=== PATIENT | male | born 1970 | race Caucasian/White ===

== ENCOUNTER 2017-09-18 20:07 | Observation (INO) | payer OTHER ==
[2017-09-18] MEDS ORDERED: HYDROmorphONE/DILAUDID 1 MG/ML INJ IVP ONE (20:10)
--- NOTE | 2017-09-18 20:11 | EDPHY ---
H & P Time Seen by Provider: 09/18/17 20:08 HPI/ROS: Chief Complaint: Left leg injury HPI: 47-year-old male was skiing [facility] this afternoon when he had a fall and sustained injury to his left lower leg. He was seen at the medical clinic there and diagnosed with a closed tibia and fibular fracture. He was in contact with Dr. Ingram, orthopedics. Dr. Jama requested the patient be transferred here via ambulance for planned surgical repair in the morning. Patient was helmeted. Did not hit his head. He had no loss of conscious. He has no other injuries or complaints at this time. He was splinted at [place] and is comfortable. ROS: 10 point Review of Systems is negative except as noted in the HPI. PMH: None Social History: No smoking, no alcohol, no recreational drug use Family History: non-contributory Physical Exam: Gen: Awake, Alert, No Distress HEENT: Nose: no rhinorrhea Eyes: PERRLA, EOMI Mouth: Moist mucosa Neck: Supple, no JVD Chest: nontender, lungs clear to auscultation Heart: S1, S2 normal, no murmur Abd: Soft, non-tender, no guarding Back: no CVA tenderness, no midline tenderness Ext: Left leg is in a posterior and sugar-tong splint. Capillary refill is less than 2 sec. He has normal sensation. Skin: no rash Neuro: CN II-XII intact, Sensation grossly intact, Strength 5/5 in bilateral upper and lower extremities Constitutional: Initial Vital Signs Temperature (C) 36.9 C 09/18/17 20:09 Heart Rate 89 09/18/17 20:09 Respiratory Rate 18 09/18/17 20:09 Blood Pressure 130/96 H 09/18/17 20:09 O2 Sat (%) 98 09/18/17 20:09 O2 Delivery Mode Room Air O2 (L/minute) 3 Allergies/Adverse Reactions: No Known Allergies Allergy (Unverified 09/18/17 20:09) Home Medications: Medication Instructions Recorded Finasteride 09/18/17 Medical Decision Making ED Course/Re-evaluation: I have discussed with LUNA Harden, orthopedics. She is requesting that the patient be admitted to the hospitalist. I have discussed with Dr. Leigh. She will admit to her service for further care. Patient be NPO after midnight. - Data Points Medications Given: Discontinued Medications Hydromorphone HCl (Dilaudid) 0.5 mg IVP EDNOW ONE Stop: 09/18/17 20:11 Last Admin: 09/18/17 20:15 Dose: 0.5 mg Departure - Departure [facility] Acute Clinical Impression: Tibia/fibula fracture Condition: Fair Referrals: Patient,NotPresent [Primary Care Provider] - As per Instructions
[2017-09-18] MEDS ORDERED: ACETAMINOPHEN 325 MG TAB PO PRN (20:37)
[2017-09-18] MEDS ORDERED: PROMETHAZINE HCL 25 MG/ML INJ IVP PRN (20:37)
[2017-09-18] MEDS ORDERED: HYDROCODONE/APAP 5/325 TAB PO PRN (20:37)
[2017-09-18] MEDS ORDERED: diphenhydrAMINE 25 MG CAP PO PRN (20:37)
[2017-09-18] MEDS ORDERED: LORazepam 0.5 MG TAB PO PRN (20:37)
[2017-09-18] MEDS ORDERED: ONDANSETRON 4 MG/2 ML VIAL IVP PRN (20:37)
[2017-09-18] MEDS: HYDROmorphONE/DILAUDID 1 MG/ML INJ IVP PRN (21:38)
[2017-09-18] MEDS ORDERED: ZOLPIDEM TARTRATE 5 MG TAB PO PRN (22:02)
[2017-09-18] MEDS: OXYCODONE/APAP 5/325 TAB PO PRN (22:25)
--- NOTE | 2017-09-18 22:28 | PDGENHP ---
History and Physical - Chief Complaint Left lower leg pain, ski accident - History of Present Illness Source-patient provides history and is reliable. EMR reviewed and case discussed with ED provider. HPI - very pleasant 47-year-old gentleman with no significant past medical history except for recent on the shingles in his right axilla who presents emergency department today from [place] following a fall while skiing. Patient with left lower extremity pain. He was evaluated and diagnosed with a closed tib-fib fracture. Splinted prior to transfer to [facility] for surgical intervention. Patient denies any head injury. Was ring home med. He was feeling well until his fall. No other acute illnesses. Patient denies any numbness or tingling in his left lower extremity. History Information - Allergies/Home Medication List Allergies/Adverse Reactions: No Known Allergies Allergy (Verified 09/18/17 22:14) Home Medications: Finasteride [Propecia] 1 mg PO HS 09/18/17 [Last Taken 09/17/17] Herbals/Supplements -Info Only 1 unit PO DAILY 09/18/17 [Last Taken Unknown] Valacyclovir HCl [Valtrex] 1 gm PO TID 09/18/17 [Last Taken 09/18/17 12:00] I have personally reviewed and updated: family history, medical history, social history, surgical history - Past Medical History Additional medical history: Shingles right axilla - Surgical History Additional surgical history: ORIF of the right clavicle. Peroneal bursa excision. - Family History Positive for: non-pertinent - Social History Smoking Status: Never smoked Alcohol Use: None Drug Use: None Additional social history: lives with and children. Cor status- full Review of Systems Review of Systems: ROS: 10pt was reviewed & negative except for what was stated in HPI & below Neurological: Reports: other (Right axillary herpetic neuralgia) Physical Exam Physical Exam: Temp Pulse Resp BP Pulse Ox 36.8 C 71 16 137/77 H 97 09/18/17 21:19 09/18/17 21:19 09/18/17 21:19 09/18/17 21:19 09/18/17 21:19 Constitutional: no apparent distress, other (Pleasant adult male lying comfortably with left leg splinted and elevated) Eyes: EOMI (Grossly intact), No scleral injection Ears, Nose, Mouth, Throat: moist mucous membranes, No poor dentition Cardiovascular: regular rate and rhythym, no murmur, rub, or gallop, No edema Peripheral Pulses: 2+: dorsalis-pedis (R) Respiratory: no respiratory distress, no rales or rhonchi, clear to auscultation Gastrointestinal: normoactive bowel sounds, soft, non-tender abdomen, no palpable masses Genitourinary: no bladder tenderness, No sandra in urethra Skin: warm, normal color, rash (Right axilla with minimal area of erythema. No scabbed lesions or grouped vesicles.) Musculoskeletal: other (Left leg immobilized otherwise moves all extremities while lying in gurney.) Neurologic: AAOx3, sensation intact bilaterally (Sensation of bilateral toes. Limited exam on the left secondary to splint), other (Grossly normal.), No numbness Psychiatric: interacting appropriately, not anxious, not encephalopathic, thought process linear Assessment & Plan Assessment: Tibia/fibula fracture (Acute) Plan: Assessment and plan: Pleasant 39-year-old gentleman status post mechanical fall while skiing now with left lower leg pain. # left tib fib fracture-orthopedics previously consulted prior to patient's arrival. Plan for patient to go to the OR in a.m. he will be NPO after midnight. # acute postoperative pain-patient reports less itching with use of Dilaudid and Percocet over morphine and [place]. This has been changed in EMR. #shingles - patient without any open lesions. His rash is nearly resolved. Will plan to continue his antivirals once medication list has been reconciled in the morning. FEN - NPO after midnight. Labs in a.m. replace electrolytes if needed. PPX - holding anticoagulation SCDs in setting of perioperative status with lower extremity fracture. COR - full Dispo - patient has been admitted to observation status pending further recommendations Orthopedic surgery. No contraindications to proceed with surgery in the a.m.. Patient overall is low cardiac risk.
[2017-09-19] MEDS: HYDROmorphONE/DILAUDID 1 MG/ML INJ IVP PRN ×8 (00:47→13:04)
[2017-09-19 05:01] LABS: INR 1.06 (0.83-1.16)
--- NOTE | 2017-09-19 09:13 | PDANEPAE ---
ANE History of Present Illness fracture of L tibia and fibula ANE Past Medical History - Cardiovascular History Hx Hypertension: No Hx Arrhythmias: Yes Hx Chest Pain: No Hx Coronary Artery / Peripheral Vascular Disease: No Hx CHF / Valvular Disease: No Hx Palpitations: No Cardiovascular History Comment: Occassional PVC's - Pulmonary History Hx COPD: No Hx Asthma/Reactive Airway Disease: No Hx Recent Upper Respiratory Infection: No Hx Oxygen in Use at Home: No Hx Sleep Apnea: No Sleep Apnea Screening Result - Last Documented: Negative - Neurologic History Hx Cerebrovascular Accident: No Hx Seizures: No Hx Dementia: No - Endocrine History Hx Diabetes: No Hypothyroid: No Hyperthyroid: No Obesity: no - Renal History Hx Renal Disorders: No - Liver History Hx Hepatic Disorders: No - Neurological & Psychiatric Hx Hx Neurological and Psychiatric Disorders: No - Cancer History Hx Cancer: No - GI History GERD: no - Chronic Pain History Chronic Pain: No - Surgical History Prior Surgeries: s/p clavicle ORIF ANE Review of Systems Review of Systems: - Exercise capacity METS (RN): 5 METS ANE Patient History - Allergies Allergies/Adverse Reactions: No Known Allergies Allergy (Verified 09/18/17 22:14) - Home Medications Home Medications: Finasteride [Propecia] 1 mg PO HS 09/18/17 [Last Taken 09/17/17] Herbals/Supplements -Info Only 1 unit PO DAILY 09/18/17 [Last Taken Unknown] Valacyclovir HCl [Valtrex] 1 gm PO TID 09/18/17 [Last Taken 09/18/17 12:00] - NPO status NPO Since - Liquids (Date): 09/19/17 NPO Since - Liquids (Time): 01:00 NPO Since - Solids (Date): 09/19/17 NPO Since - Solids (Time): 01:00 - Anes Hx Anes Hx: no prior problems - Smoking Hx Smoking Status: Never smoked - Alcohol Use Alcohol Use: Occasionally - Family Anes Hx Family Anes Hx: neg - N/A ANE Labs/Vital Signs - Labs Result Diagrams: 09/19/17 04:31 - Vital Signs Blood Pressure: 122/77 Heart Rate: 84 Respiratory Rate: 12 O2 Sat (%): 96 Height: 185.42 cm Weight: 80 kg ANE Physical Exam - Airway Neck exam: FROM Mallampati Score: Class 1 Mouth exam: normal dental/mouth exam (small chip on upper front tooth) - Pulmonary Pulmonary: clear to auscultation - Cardiovascular Cardiovascular: regular rate and rhythym - ASA Status ASA Status: II ANE Anesthesia Plan Anesthesia Plan: general endotracheal anesthesia (muscle relaxation requested.) Regional Anesthesia: adductor canal FNB
[2017-09-19] MEDS ORDERED: fentaNYL 100 MCG/2 ML INJ ONE ×2 (09:16→12:03)
[2017-09-19] MEDS ORDERED: BACITRACIN 50,000 UNITS/10 ML SYR IRR ONE (09:17)
[2017-09-19] MEDS ORDERED: BUPIVACAINE 0.25% 30 ML SDV ONE (09:17)
[2017-09-19] MEDS ORDERED: POLYMYXIN B SULFATE 500,000 UNIT/10 ML SYR IRR ONE (09:17)
[2017-09-19] MEDS ORDERED: ROPIVACAINE HCL 150 MG/30 ML INJ ONE (09:19)
[2017-09-19] MEDS ORDERED: MIDAZOLAM 2 MG/2 ML VIAL IVP ONE (09:20)
[2017-09-19] MEDS ORDERED: fentaNYL 100 MCG/2 ML INJ IVP ONE (09:20)
[2017-09-19] MEDS ORDERED: BUPIVACAINE 0.5% 30 ML SDV ONE (09:24)
[2017-09-19] MEDS ORDERED: fentaNYL 250 MCG/5 ML INJ ONE (09:25)
[2017-09-19] MEDS ORDERED: PROPOFOL 200 MG/20 ML VIAL ONE (09:25)
[2017-09-19] MEDS ORDERED: ROCURONIUM 50 MG/5 ML VIAL ONE ×2 (09:25→10:04)
[2017-09-19] MEDS ORDERED: RANITIDINE 50 MG/2 ML VIAL ONE (09:26)
[2017-09-19] MEDS ORDERED: DEXAMETHASONE 4 MG/ML VIAL ONE ×2 (09:26)
--- NOTE | 2017-09-19 09:27 | PDHPUP ---
History & Physical Update H&P update statement: This history and physical update is based on an assessment of the patient which was completed after admission or registration (within 24 hours), but prior to the surgery/procedure.
[2017-09-19] MEDS ORDERED: clonIDINE 1 MG/10 ML VIAL EP ONE (09:30)
[2017-09-19] MEDS ORDERED: ceFAZolin 2 GM/SWFI 2 GM/20 ML SYR IVP ONE (09:31)
[2017-09-19] MEDS ORDERED: MIDAZOLAM 2 MG/2 ML VIAL ONE (09:31)
[2017-09-19] MEDS ORDERED: ceFAZolin 1 GM VIAL ONE (09:45)
--- NOTE | 2017-09-19 10:07 | GCON ---
[f rep st] CONSULTATION CHIEF COMPLAINT: Left tib-fib fracture. HISTORY OF PRESENT ILLNESS: This is a 47-year-old male who was skiing at [place], sustained a fa ll and an injury and fracture. He was seen up there and splinted and transferred to [facility]. I was seen for evaluation of this and operative fixation. I did discuss this with him on the phone, and reviewed his x-rays. He complains of pain in the left tibia. He denies other injury. ALLERGIES: No known drug allergies. HOME MEDICATIONS: Propecia, Valtrex, herbals. PAST MEDICAL HISTORY: Shingles. SURGICAL HISTORY: ORIF of the right clavicle and a peroneal bursal excision. FAMILY HISTORY: Is reviewed and noncontributory. SOCIAL HISTORY: Nonsmoker. REVIEW OF SYSTEMS: His 10-point review of systems are otherwise negative. PHYSICAL EXAMINATION: GENERAL: He is alert, oriented, appropriate. He is in only mild distress. H EENT: His head is atraumatic, normocephalic. His eyes are equal. His mouth shows moist mucous memb ranes. NECK: Supple. HEART: Shows pulse regular rate and rhythm. CHEST: Shows no respiratory di stress. ABDOMEN: Soft. EXTREMITIES: Upper extremities were without abnormality. Moves them well. Skin is warm. The left lower extremity is splinted. I did not move this. He does have sensation in all his toes, including 1st web space. He can flex and extend his great toe. His right lower ext remity is atraumatic and moves well. RADIOGRAPHS: Show a midshaft to distal 1/3 tibia fracture, midshaft fibula fracture. ASSESSMENT: Left tib-fib fracture. PLAN: I discussed the operative intervention with him. I will proceed with a left tibial nail. I d iscussed the possibility of need for fixation of his ankle, particularly posterior malleolar and medi al malleolus nondisplaced fracture. We will evaluate fluoroscopically. Discussed risks and benefits including nonunion, malunion, delayed union, anterior knee pain, nerve injury, infection, continued pain. I discussed postoperative course. We will proceed with surgery. /[id number]/MODL
[2017-09-19] MEDS ORDERED: PHENYLEPHRINE HCL 100 MCG/ML SYR ONE (10:10)
[2017-09-19] MEDS ORDERED: ONDANSETRON 4 MG/2 ML VIAL ONE (11:17)
[2017-09-19] MEDS ORDERED: SUGAMMADEX SODIUM 200 MG/2 ML VIAL IVP ONE (11:24)
[2017-09-19] MEDS ORDERED: valACYclovir 500 MG TAB PO SCH (11:30)
[2017-09-19] MEDS ORDERED: fentaNYL 100 MCG/2 ML INJ IVP PRN (11:33)
[2017-09-19] MEDS ORDERED: ONDANSETRON 4 MG/2 ML VIAL IVP PRN (11:33)
[2017-09-19] MEDS ORDERED: NALOXONE HCL 0.4 MG/ML INJ IVP PRN (11:33)
--- NOTE | 2017-09-19 12:08 | POSTOPPROG ---
Post Op Note Date of Operation: 09/19/17 Surgeon: Vasiliy Ingram Aviation Safety Technician: none Anesthesiologist: Lefty Anesthesia: GET(General Endotracheal) Pre-op Diagnosis: left tib/fib fx Post-op Diagnosis: same Indication: above Procedure: orif L TIb, closed tx fib fx Inf/Abcess present in the surg proc area at time of surgery?: No EBL: 50-100
[2017-09-19 12:15] VITALS: PULSE 98; TEMP 99.9
[2017-09-19] MEDS ORDERED: HYDROmorphONE/DILAUDID 1 MG/ML INJ ONE (12:26)
--- NOTE | 2017-09-19 12:58 | GOP ---
[f rep st] OPERATIVE REPORT DATE OF OPERATION: 09/19/2017 SURGEON: Vasiliy Ingram MD PACKING MACHINE PILOT CAN ROUTER: None. ANESTHESIA: General. PREOPERATIVE DIAGNOSIS: Left tibia shaft fracture, fibular shaft fracture POSTOPERATIVE DIAGNOSIS: Left tibia shaft fracture, fibular shaft fracture PROCEDURE PERFORMED: 1. Open reduction, internal fixation, with intramedullary nailing of left tibial shaft fracture. 2. Closed treatment with manipulation, left fibular shaft fracture. FINDINGS: SPECIMENS: None. ESTIMATED BLOOD LOSS: 50 mL. INDICATIONS: This is a 47-year-old male, who was skiing and sustained this fracture. I was asked to see him by one of my partners, and discussed the surgical intervention with him. We discussed risks of nonunion, malunion, delayed union, continued pain, anterior knee pain, need for hardware removal, compartment syndrome, blood loss, infection, and he elected to proceed. Informed consent obtained. All questions answered. He was marked preoperatively. DESCRIPTION OF PROCEDURE: He was taken to the operative suite, sterilely prepped and draped in shelbi l fashion. Time-out was performed verifying the site, side, location, and there was agreement with t he team. As I was taking off the splint, there was some duskiness to the anterior skin over the frac ture site. This did improve by the end of the case with reduction. There was no open injury. His c ompartments were soft. Block was administered per Anesthesia. 2 g of Ancef. I began with localizing the skin incision with a guidewire. Incised the skin and the capsule, made a patellar tendon splitting approach, staying extra-articular of the knee. Used AP and lateral x-rays to find the starting point. Placed the starting guide pin. Used the entry reamer. I then used the guide tip over a tibial triangle and a ball-tipped guidewire with a slight bend, reduced the fractur e and placed this down by the ankle. I reamed starting with an 8.5 reamer up to a 12 mm reamer, leslie villegas kept cortical chatter with the last 2 reamers. With the fracture reduced, I selected the nail, placed this down and malleted this into place. We placed 2 proximal locking screws in static hold a nd a 10 mm end cap. The fracture was well reduced, and I took the triangle out and used perfect circ les to place 2 distal locking screws. Hemostasis was obtained. X-rays confirmed our reduction, nail placement, hardware placement, and the position of the interlocking screws. The wound was thoroughl y irrigated. I closed the knee wound with #1 Vicryl at the patellar tendon, 0 Vicryl at the sheath, 2-0 Vicryl and 3-0 Stratafix. Closed the other wounds with 2-0 Vicryl through a Stratafix. All woun ds were closed. Dermabond placed and sterile dressing. Taken to PACU in stable condition. IMPLANTS: Synthes 11 mm x 375 tibial nail with four 5.0 locking screws and 10 mm end cap. COMPLICATIONS: None. DRAINS: None. CONDITION: Stable. /[id number]/MODL
[2017-09-19 13:02] VITALS: O2SAT 95
[2017-09-19 13:11] VITALS: BP 131/60; RESP 17
--- NOTE | 2017-09-19 13:23 | POSTANESTH ---
Post Anesthetic Evaluation Cardiovascular Status: Normal, Stable Respiratory Status: Normal, Stable Level of Consciousness/Mental Status: Can Participate in Eval Pain Control: Adequate, Prn Tx Ordered Nausea/Vomiting Control: Adequate, Prn Tx Ordered Complications Possibly Related to Anesthesia: None Noted
--- NOTE | 2017-09-19 15:23 | ASMTCMCOM ---
CM Note CM Note Notes: Patient admitted after suffering a closed tib-fib fracture while skiing. He is s/p ORIF with Dr Ingram today. He is anxious to go home, where he lives with his . PT has cleared him. I do not anticipate any d/c needs, but Case Management is available if any arise. Date Signed: 09/19/2017 03:23 PM Electronically Signed By:Alondra Cramer RN
[2017-09-19] MEDS: OXYCODONE/APAP 5/325 TAB PO PRN (15:30)
--- NOTE | 2017-09-19 16:53 | PDDCSUM ---
Discharge Summary Discharge Summary: DISCHARGE SUMMARY FOLLOW-UP ITEMS: Follow-up with Dr. Nickolas Ingram in 8 days Establish primary care with Dr. Marlon Earl DATE OF ADMISSION: 09/18/2017 DATE OF DISCHARGE: 09/19/2017 DISCHARGE DIAGNOSES: 1. Acute tibia and fibular shaft fractures on the left CONSULTATIONS: Orthopedics by Dr. Nickolas Ingram PROCEDURES / IMAGING: X-ray demonstrating acute shaft fractures ORIF left tibia fracture with intramedullary nailing, manipulation and reduction of left fibular fracture CHIEF COMPLAINT: Acute leg pain SUBJECTIVE: Patient's leg pain is well controlled at time of discharge PHYSICAL EXAM ON DISCHARGE: Systolic blood pressure 120-140, heart rate 70-80, afebrile overnight, SpO2 95% on room air, lungs are clear to auscultation bilaterally, patient has good chest rise and demonstrates no evidence of respiratory suppression, heart rhythm is regular, bowel sounds are active, alert awake oriented x3, no apparent distress LABS ON DISCHARGE: Creatinine 1, potassium 4.3, glucose 120 HOSPITAL COURSE BY PROBLEM: The patient presented with acute traumatic fractures of the left tibia and fibular shafts, and this required urgent surgical intervention by Dr. Vasiliy Ingram. The patient successfully underwent surgery without any complications. The patient's leg has been wrapped, and a boot has been placed. He has been instructed to follow toe touch weight-bearing on the left, hold off on showering for 2 days, and rewrap the area thereafter. He has also been provided Percocet 10/325 as needed for pain control and full-dose aspirin for DVT prophylaxis. I have also recommended that he remain on Senokot S twice daily until he is off of narcotics, and utilize an as-needed laxative if he gets constipated. The patient will discuss De-escalating from his opiate pain medications with Dr. Ingram in his outpatient follow-up visit. Given that the patient uses Ambien for sleep, recommended no more than 1 tab of Percocet to be used at night in combination with the Ambien DISCHARGE MEDICATIONS: Please see official discharge medication reconciliation sheet in chart , continue home medications with the addition of Percocet 10/325 as needed for pain control, Senokot S twice daily while on opiates, aspirin enteric-coated 325 daily. DISCHARGE INSTRUCTIONS: Please follow up with Dr. Ingram in a daze, weight-bearing and wound instructions included in the discharge paperwork, establish primary care with Dr. Marlon Earl thereafter.
--- NOTE | 2017-09-19 16:58 | ASDISCHSUM ---
Discharge Information Plan Status:Home with No Needs Medically Cleared to Leave:09/18/2017 Discharge Date:09/19/2017 03:37 PM CM D/C Disposition:Home, Routine, Self-Care ADT D/C Disposition:Home, Routine, Self-Care Projected Discharge Date:09/19/2017 03:37 PM Transportation at D/C:Family Discharge Delay Reason: Follow-Up Date:09/19/2017 03:37 PM Discharge Slot:2 - 12:01 pm - 18:00 pm Final Diagnosis:Tibula, fibular fractures, s/p surgical repair Placement Information Patient Contact Information Contact Name:JI Relationship: Address:[address] [place] [address] City:[place] Alternate Phone: [facility]/Zip Code:[place] [address] Email: Financial Information Financial Class:HMO and PPO Plans Primary Plan Desc:[facility] Primary Plan Number:[id number] Secondary Plan Desc: Secondary Plan Number: Assessment Information [facility] CM Progress Note CM Note CM Note Notes: Patient admitted after suffering a closed tib-fib fracture while skiing. He is s/p ORIF with Dr Ingram today. He is anxious to go home, where he lives with his . PT has cleared him. I do not anticipate any d/c needs, but Case Management is available if any arise. Date Signed: 09/19/2017 03:23 PM Electronically Signed By:Alondra Cramer RN Intervention Information
[2017-09-19] MEDS ORDERED: Finasteride [Propecia] 1 MG PO SCH (21:00)
[2017-09-20] MEDS ORDERED: NON-FORMULARY NEW DRUG (Herbals/Supplements -Info Only 1 UNIT) PO SCH (09:00)
[2017-09-20] MEDS ORDERED: ASPIRIN 325 MG TAB PO SCH (09:00)
== END 2017-09-19 15:37 | disposition home or self-care (01) ==
LOC: EDUNIT# → F3N 21:10
PROVIDERS: ADMIT Family Medicine; ATTEND Family Medicine
PROC: 0QSH04Z Reposition Left Tibia with Internal Fixation Device, Open Approach (ICD-10-PCS; principal; 2017-09-18)
PROC: 0QSKXZZ Reposition Left Fibula, External Approach (ICD-10-PCS; principal; 2017-09-18)
DX: S82.202A Unspecified fracture of shaft of left tibia, initial encounter for closed fracture (principal); S82.402A Unspecified fracture of shaft of left fibula, initial encounter for closed fracture; V00.321A Fall from snow-skis, initial encounter; Y93.23 Activity, snow (alpine) (downhill) skiing, snowboarding, sledding, tobogganing and snow tubing
CPT/HCPCS: 27535; 27781; 73590; 73610; 76001; 97116; 97161; C1769; G0378; 96374; C1713; J0171; J0690; J0735; J1100; J1170; J2250; J2370; J2405; J2704; J2780; J2795; J3010